=== PATIENT | female | born 1990 | race Caucasian/White ===

== ENCOUNTER 2020-08-09 13:12 | Emergency (ER) | payer OTHER, SELFPAY ==
--- NOTE | 2020-08-09 13:35 | ED.FEMALEGU ---
HPI - Female Genitourinary General Chief complaint: Urogenital-Female Stated complaint: STD Time Seen by Provider: 08/09/20 13:30 Source: patient and RN notes reviewed Mode of arrival: ambulatory Limitations: no limitations History of Present Illness HPI Narrative: 30-year-old female presents concern for vaginal discharge, vaginal burning, swelling, itching, irritation. Reports thick white vaginal discharge. Reports she has had a tubal ligation and there is no chance she could be . Reports symptoms have been present for 2 days. Reports she has been to make sure that could have been exposed to an STD. Denies nausea, vomiting, back pain, abdominal pain, fever, malaise, body aches. Denies dysuria, frequency, urgency. Patient reports she has chronic kidney disease, has hematuria and proteinuria at baseline. MD elicited complaint: vaginal discharge Related Data Allergies Allergy/AdvReac Type Severity Reaction Status Date / Time enalapril Allergy Mild Unverified 09/13/14 17:14 Review of Systems Review of Systems: Narrative: CONSTITUTIONAL: Denies malaise, chills, sweats, or fever. CARDIOVASCULAR: Denies chest pain, palpitations, or edema. RESPIRATORY: Denies cough or dyspnea. GASTROINTESTINAL: Denies abdominal pain, nausea, vomiting, diarrhea GENITOURINARY: Denies dysuria, frequency, urgency. Reports abnormal vaginal discharge, vaginal swelling, irritation, redness, itching. MUSCULOSKELETAL: Denies back pain, myalgia. All systems reviewed & are unremarkable except as noted in HPI and below PMFSH Comments At time of signature, agree with nursing past medical, surgical, social and family history. There is no relevant family history pertinent to the presenting complaint Exam Narrative: Exam Narrative: GENERAL: Well-appearing, well-nourished, and in no acute distress. HEAD: Normocephalic. EYES: PERRLA, conjunctivae clear. NECK: Supple. No lymphadenopathy CHEST: Clear to auscultation. No respiratory distress. HEART: Regular rate and rhythm. ABDOMEN: Soft, nontender upon palpation, nondistended, normal active bowel sounds, no palpable or pulsatile masses, no guarding. No CVA tenderness SKIN: Warm, dry, no rash. NEURO: Alert and oriented x3. PSYCH: Normal mood and affect : Speculum Exam - Vagina: abnormal vaginal discharge (Thick) white, erythematous and swelling Course Course Emergency Course: Patient is aware of diagnosis, understands and agrees to treatment plan. Anticipatory guidance given. Patient agrees to follow-up as directed and is aware of reasons to seek care at the emergency department. Portions of this record may have been created with voice recognition software Vital Signs Vital signs: Vital Signs Temperature 97.9 F 08/09/20 13:36 Pulse Rate 68 08/09/20 13:36 Respiratory Rate 18 08/09/20 13:36 Blood Pressure 125/88 08/09/20 13:36 Pulse Oximetry 100 08/09/20 13:36 Temperature 97.9 F 08/09/20 13:36 Pulse Rate 68 08/09/20 13:36 Respiratory Rate 18 08/09/20 13:36 Blood Pressure 125/88 08/09/20 13:36 Pulse Oximetry 100 08/09/20 13:36 Reviewed. MDM - Female Genitourinary MDM Narrative Medical decision making narrative: Exam findings and UA show no acute concerns or changes; patient is non-toxic appearing and is in no distress. No CMT, adnexal tenderness, or evidence of pelvic etiology. Patient is appropriate for outpatient treatment and follow-up. Lab Data Labs: Urine Glucose Negative Reference Range: Negative Urine Bilirubin Negative Reference Range: Negative Urine Ketone Negative Reference Range: Negative Urine Specific [place] 1.030 Reference Range:1.001-1.035 Urine Blood
[2020-08-09 13:36] VITALS: BP 125/88; PULSE 68; RESP 18; TEMP 36.6; O2SAT 100
[2020-08-09] MEDS: AZITHROMYCIN 250 MG TABLET 1000 MG PO (14:00)
[2020-08-09] MEDS: cefTRIAXone 250 MG VIAL IM (14:01)
[2020-08-09] MEDS: LIDOCAINE HCL 1% LOCAL INJ 20 ML VIAL INFILTRATE (14:01)
== END 2020-08-09 14:25 | disposition home or self-care (01) ==
PROVIDERS: Emergency Provider Nurse Practitioner
DX: N89.8 Other specified noninflammatory disorders of vagina (principal); Z20.2 Contact with and (suspected) exposure to infections with a predominantly sexual mode of transmission; I10 Essential (primary) hypertension
CPT/HCPCS: 81003; 87491; 87591; 87661; 96372; 99214; A9270; G0463; J0696

== ENCOUNTER 2020-10-12 11:32 | Day surgery (SDC) | payer OTHER, SELFPAY ==
[2020-10-12] VITALS (14 sets, daily range): BP systolic 81–102; BP diastolic 57–73; PULSE 68–109; RESP 13–18; TEMP 36.1–37.1; O2SAT 98–100
[2020-10-12 12:32] LABS: Basophils Percent Auto 0.4 % (0.2-1.2); Eosinophils Percent Auto 0.4 % (0-4.4); Hemoglobin 12.5 g/dL (12.0-15.0); Immature Granulocyte Absolute 0.07 K/mm3 (0.00-0.031); Immature Granulocyte Percent A 0.7 % (0-0.5); Lymphocytes Absolute Auto 1.02 K/mm3 (0.9-3.2); Lymphocytes Percent Auto 10.3 % (18.3-44.2); Mean Corpuscular HGB Conc 31.3 g/dl (32-36); Mean Corpuscular Volume 89.5 fl (80-100); Mean Platelet Volume 10.5 fl (7.4-10.4); Monocytes Absolute Auto 0.4 K/mm3 (0.1-0.6); Monocytes Percent Auto 4.3 % (2.6-8.5); Neutrophils Absolute Auto 8.3 K/mm3 (1.3-6.7); Neutrophils Percent Auto 83.9 % (45.5-73.1); Platelet Count Result 321 k/mm3 (150-375); Red Blood Count 4.47 M/mm3 (4.2-5.4); Red Cell Distribution Width 12.5 % (11.5-14.5); White Blood Count 9.9 K/mm3 (4.5-10.0)
[2020-10-12 12:45] LABS: Anion Gap 3 mmol/L (8-16); Blood Urea Nitrogen 13 mg/dL (7-17); Calcium 8.6 mg/dL (8.4-10.2); Carbon Dioxide 26 mmol/L (22-30); Chloride 108 mmol/L (98-107); Estimated CRCL calculation 86 ml/min; Estimated Glomerular Filt Rate > 60; Glucose 108 mg/dL (65-105); Sodium 137 mmol/L (137-145)
--- NOTE | 2020-10-12 12:56 | ED.FEMALEGU ---
HPI - Female Genitourinary General Chief complaint: Vaginal Bleeding Stated complaint: laceration Time Seen by Provider: 10/12/20 12:13 Source: patient and RN notes reviewed Limitations: no limitations History of Present Illness HPI Narrative: Patient is 30 years old white female presents with sudden onset of vaginal bleeding during having vaginal intercourse. Patient reported this was the first time to sleep with WI, denies any using of toys or anything unusual. No condom. Last menstrual period 2 to 3 weeks ago patient is 11 para 5 6 Related Data Home Medications Medication Instructions Recorded Confirmed No Home Medications 10/12/20 10/12/20 Allergies Allergy/AdvReac Type Severity Reaction Status Date / Time enalapril AdvReac Mild Joint Pain Verified 10/12/20 11:55 Review of Systems Review of Systems: Narrative: CONSTITUTIONAL: Denies fever, chills, or sweats. EYES: Denies visual changes, redness, or discharge. ENT: Denies rhinorrhea, congestion, sore throat, or otalgia. CARDIOVASCULAR: Denies chest pain, palpitations, or edema. RESPIRATORY: Denies cough or dyspnea. GASTROINTESTINAL: Denies abdominal pain, nausea, vomiting, or diarrhea. GENITOURINARY: Denies dysuria or hematuria. SKIN: Denies rash or itching. MUSCULOSKELETAL: Denies back pain, joint pain, or myalgia. NEUROLOGIC: Denies headache, numbness, or weakness. PSYCHIATRIC: Denies anxiety or depression. [facility] Social History Social History Gender identity (if verbalized by the patient): Female Exam Narrative: Exam Narrative: General appearance: Well-developed, well-nourished Skin: Normal color Head: Normocephalic, nontraumatic Eyes: Clear conjunctiva ENT: Oropharynx normal, ears normal, nose normal Neck: Supple, nontender Chest and respiratory: Airway patent, no respiratory distress, no accessory muscle use Heart: Regular rate/rhythm Abdomen: Soft, nontender, no organomegaly, quiet bowel sounds Vascular: Normal peripheral pulses, normal capillary refill. Musculoskeletal: Normal range of motion, nontender back Neurologic: Alert and oriented ?3, [employer] is normal as tested, no gross motor deficit : Speculum Exam - Vagina: laceration (About 5 cm laceration left side of the vagina proximal to the cervix) and vaginal bleeding (Heavy bleeding of fresh red bright blood, with a lot of large size clots) Speculum Exam - Cervix: normal appearance of the cervix and Cervical os closed Course Course Emergency Course: Stable Consultations Consultation #1: Dr. Ochoa Date: 10/12/20 Time: 13:21 Vital Signs Vital signs: Vital Signs Temperature 36.1 C L 10/12/20 11:52 Pulse Rate 109 H 10/12/20 11:52 Respiratory Rate 18 10/12/20 11:52 Blood Pressure 89/68 L 10/12/20 11:52 Pulse Oximetry 99 10/12/20 11:52 Temperature 36.1 C L 10/12/20 11:52 Pulse Rate 100 10/12/20 12:46 Respiratory Rate 18 10/12/20 11:52 Blood Pressure 81/68 L 10/12/20 12:46 Pulse Oximetry 99 10/12/20 11:52 MDM - Female Genitourinary MDM Narrative Medical decision making narrative: Vaginal bleeding during intercourse. Vaginal laceration, is my concern. Labs, pelvic exam ordered IV fluid ordered. Further plan to follow Differential Diagnosis Differential diagnosis: Likely other (Vaginal wall laceration) Lab Data Result diagrams: 10/12/20 12:24 10/12/20 12:24 Labs: Lab Results 10/12/20 10/12/20 10/12/20 Range/Units 12:24 12:24 13:21 WBC 9.9 (4.5-10.0) K/mm3 RBC 4.47 (4.2-5.4) M/mm3 Hgb 12.5 (12.0-15.0) g/dL Hct 40.0 (37.0-47.0) % MCV 89.5 (80-100)
[2020-10-12] MEDS: SODIUM CHLORIDE 0.9% IV 1,000 ML 999 ML IV CONT ×2 (13:14)
--- NOTE | 2020-10-12 13:15 | PC.NURSE ---
Addendum entered by Brennan Burns RN 10/12/20 13:59: Also note pt has multiple aurelia size clots to vaginal vault during exam. Original Note: Pelvic exam per Dr. Nunes with this RN in attendance. Note pt has numerous clots in vaginal vault, and actively bleeding from what appears to be a laceration to left vaginal wall. Suction approx 200cc bright red blood and vagina packed with 4x4's per Dr. Nunes.
--- NOTE | 2020-10-12 14:03 | PC.NURSE ---
Red top being drawn. Report to OR. Preparing to transport to pre-op.
--- NOTE | 2020-10-12 14:23 | WPDANESEPPF ---
Anes - Initial Pre Proc Eval Procedure: Operation Date: 10/12/20 15:30 Proposed Procedures p Repair Vaginal Laceration - Aleah Ochoa MD Date/Time: 10/12/20 14:23 Surgeon: Aleah Ochoa MD Pre Op Diagnosis: vaginal laceration Patient Data Age: 30 Gender: F Height: 5 ft 4 in Weight: 62.1 kg Last Vital Signs Temp 36.1 C L 10/12/20 11:52 Pulse 84 10/12/20 13:45 Resp 16 10/12/20 13:45 BP 90/64 L 10/12/20 13:45 Pulse Ox 100 10/12/20 13:45 Allergies Allergy/AdvReac Type Severity Reaction Status Date / Time enalapril AdvReac Mild Joint Pain Verified 10/12/20 11:55 Home Medications Medication Instructions Recorded Confirmed Type No Home Medications 10/12/20 10/12/20 History Laboratory Tests 10/12/20 10/12/20 10/12/20 12:24 12:24 13:12 WBC 9.9 K/mm3 K/mm3 (4.5-10.0) RBC 4.47 M/mm3 M/mm3 (4.2-5.4) Hgb 12.5 g/dL g/dL (12.0-15.0) Hct 40.0 % % (37.0-47.0) MCV 89.5 fl fl (80-100) MCH 28.0 pg pg (26-34) MCHC 31.3 g/dl L g/dl (32-36) RDW 12.5 % % (11.5-14.5) Plt Count 321 k/mm3 k/mm3 (150-375) MPV 10.5 fl H fl (7.4-10.4) Immature Gran % (Auto) 0.7 % H % (0-0.5) Neut % (Auto) 83.9 % H % (45.5-73.1) Lymph % (Auto) 10.3 % L % (18.3-44.2) Crisp % (Auto) 4.3 % % (2.6-8.5) Eos % (Auto) 0.4 % % (0-4.4) Baso % (Auto) 0.4 % % (0.2-1.2) Lymph # (Auto) 1.02 K/mm3 K/mm3 (0.9-3.2) Crisp # (Auto) 0.4 K/mm3 K/mm3 (0.1-0.6) Eos # (Auto) 0.0 K/mm3 K/mm3 (0-0.3) Baso # (Auto) 0.0 K/mm3 K/mm3 (0.0-0.1) Abs Immat Gran (auto) 0.07 K/mm3 H K/mm3 (0.00-0.031) Absolute Neuts (auto) 8.3 K/mm3 H K/mm3 (1.3-6.7) Absolute Nucleated RBC 0.0 K/mm3 K/mm3 (0.0-0.012) Nucleated RBC % 0.0 % % (0.0-0.2) Sodium 137 mmol/L mmol/L (137-145) Potassium 4.0 mmol/L mmol/L (3.4-5.0) Chloride 108 mmol/L H mmol/L (98-107) Carbon Dioxide 26 mmol/L mmol/L (22-30) Anion Gap 3 mmol/L L mmol/L (8-16) BUN 13 mg/dL mg/dL (7-17) Creatinine 0.70 mg/dL mg/dL (0.7-1.0) Estim Creat Clear Calc 86 ml/min ml/min Estimated GFR > 60 (59 - ) Glucose 108 mg/dL H mg/dL (65-105) Calcium 8.6 mg/dL mg/dL (8.4-10.2) Serum HCG, Qual Blood Type Pending Antibody Screen Pending 10/12/20 13:21 WBC RBC Hgb Hct MCV MCH MCHC RDW Plt Count MPV Immature Gran % (Auto) Neut % (Auto) Lymph % (Auto) Crisp % (Auto) Eos % (Auto) Baso % (Auto) Lymph # (Auto) Crisp # (Auto) Eos # (Auto) Baso # (Auto) Abs Immat Gran (auto) Absolute Neuts (auto) Absolute Nucleated RBC Nucleated RBC % Sodium Potassium Chloride Carbon Dioxide Anion Gap BUN Creatinine Estim Creat Clear Calc Estimated GFR Glucose Calcium Serum HCG, Qual Pending Blood Type Antibody Screen Patient hx anesthesia problems: none Family hx anesthesia problems: none [facility] Past Medical History Medical History Hypertension Social History Social History Gender identity (if verbalized by the patient): Female Anes - Eval Final PreProcedure Day of Procedure 10/12/20 14:23 Patient weight: normal Heart: regular rate and rhythm Lungs: clear to auscultation Airway: Mallampati scale class II Neurological: alert and oriented Last oral intake: >/= 8 hours ASA classification: II Emergent: n
--- NOTE | 2020-10-12 14:36 | PM.HPGS ---
History of Present Illness History of Present Illness Consent: Risks, benefits, and alternatives have been discussed and questions answered. Patient agrees to proceed with procedure. Chief complaint: vaginal laceration Narrative: Sary Ta is a 30 year old female who began bleeding bright red blood post sex with new partner. Denies use of toys or any foreign objects. No pain. No other complaints. Found to have a vaginal laceration in ER. Patient packed in ER after blood suctioned from vaginal by ER MD. Discussed with patient need to suture laceration and need for pelvic rest post op. Review of Systems Constitutional: Constitutional: Reports no additional constitutional complaints Gastrointestinal: Gastrointestinal: Reports no additional gastrointestinal complaints Genitourinary: Genitourinary: Reports no additional female genitourinary complaints and Reports as per [facility] Past Medical History Medical History (Updated 10/12/20 @ 14:39 by Aleah Ochoa MD) History of spontaneous x 6 Hypertension (normal spontaneous vaginal delivery) x 5 Surgical History Surgical History (Updated 10/12/20 @ 14:39 by Aleah Ochoa MD) S/P tubal ligation Social History Social History Gender identity (if verbalized by the patient): Female Meds Home Medications and Allergies Home Medications Medication Instructions Recorded Confirmed Type No Home Medications 10/12/20 10/12/20 History Allergies Allergy/AdvReac Type Severity Reaction Status Date / Time enalapril AdvReac Mild Joint Pain Verified 10/12/20 11:55 Vital Signs Vital Signs - 24 hr 10/12/20 11:52 10/12/20 12:45 10/12/20 12:46 Temperature 96.9 F L Pulse Rate 109 H 91 100 Respiratory Rate 18 Blood Pressure 89/68 L 86/73 L 81/68 L Pulse Oximetry 99 10/12/20 13:15 10/12/20 13:20 10/12/20 13:30 Temperature Pulse Rate 68 82 73 Respiratory Rate 17 13 14 Blood Pressure 93/66 L 90/61 L Pulse Oximetry 100 10/12/20 13:45 Temperature Pulse Rate 84 Respiratory Rate 16 Blood Pressure 90/64 L Pulse Oximetry 100 Exam Narrative: Exam Narrative: exam deferred to OR. see ER MD exam Const: General: healthy appearing and comfortable Assessment and Plan Assessment and plan (1) Vaginal bleeding: Code(s): N93.9 - Abnormal uterine and vaginal bleeding, unspecified Status: Acute (2) Vaginal laceration: Qualifiers: Encounter type: subsequent encounter Foreign body presence: without foreign body Perineal laceration presence: without perineal laceration Vaginal laceration type: non-obstetric Qualified Code(s): S31.41XD - Laceration without foreign body of vagina and vulva, subsequent encounter Code(s): S31.41XA - Laceration without foreign body of vagina and vulva, initial encounter Status: Acute Assessment and Plan: plan to proceed with vaginal laceration repair under anesthesia
--- NOTE | 2020-10-12 14:42 | WPDHPUPDATE1 ---
History and Physical Update Update Date/Time: 10/12/20 14:42 History and Physical has been reviewed, including an updated exam of the patient. There are NO changes in the patient's condition. Risks, benefits, and alternatives have been discussed and questions answered. Patient agrees to proceed with procedure.
[2020-10-12] MEDS: LACTATED RINGERS 1,000 ML 30 ML IV CONT ×2 (14:51→15:26)
--- NOTE | 2020-10-12 14:55 | SUR.PREOP ---
1430; UNABLE TO DRAW SERUM PREG. PT HAVING HEAVY VAG BLEEDING. DO NOT WANT TO GET HER UP TO BATHROOM. DR MARTE NOTIFIED. HE WAIVED PREG TEST.
[2020-10-12] MEDS: LIDO 1%/EPINEPHRINE 1:100,000 50 ML VIAL 10 ML INFILTRATE (15:11)
--- NOTE | 2020-10-12 15:21 | PM.PROC ---
Procedure Note - Detailed Date of procedure: 10/12/20 Pre-op diagnosis: vaginal laceration Post-op diagnosis: same Procedure performed: repair of vaginal laceration Description of procedure: The patient was taken to the operating room and placed in the dorsal lithotomy position under anesthesia. She was prepped and draped in the usual sterile fashion externally. The bivalve speculum was placed in the vagina and 60cc of clotted blood and active bleeding were suction from the vagina. The 4x4 gauze placed in the vagina per the ER doctor were removed and were soaked and dripping. The vagina was inspected and the laceration is as noted below. The apex of the laceration is grasped with an Allis clamp. The laceration is closed in a running lock suture of 3 O Vicryl. There was an additional extension approximately 3cm from distal end of the laceration approximately 1cm in length running perpendicular to the primary laceration this had 2 [id number] sutures placed in addition to 1 additional [id number] suture placed for hemostasis. The laceration site is injected with 1% lidocaine with epinephrine. All instruments are then removed and the patient is taken to recovery in stable condition. Sponge, needle, and instrument counts are correct per the OR staff. Anesthesia: MAC and local Surgeon: Aleah Ochoa MD Estimated blood loss (mL): 40 (160 in vagina at start of procedure) Packing: No Pathology: none sent Complications: No immediate complications Condition: stable Disposition: PACU Findings: 160 cc blood clots and soaked vaginal packing in the vagina; approx 7 cm long by 1 cm deep vaginal laceration on left posterior sidewall
== END 2020-10-12 17:54 | disposition home or self-care (01) ==
LOC: ANHED 13:25 → ANHSURGERY 13:28
PROVIDERS: Emergency Provider Emergency Medicine; Visit Provider Obstetrics & Gynecology Gynecology
PROC: (CPT 57200; principal; 2020-10-12 15:30)
DX: S31.41XA Laceration without foreign body of vagina and vulva, initial encounter (principal); X58.XXXA Exposure to other specified factors, initial encounter
CPT/HCPCS: 57200; 36415; 80048; 85025; 86850; 86900; 86901; 96360; 99285; A9270; J2250; J2370; J2704; J3010; J7030; J7120

== ENCOUNTER 2023-07-31 14:05 | Emergency (ER) | payer BC, SELFPAY ==
[2023-07-31 14:15] VITALS: BP 132/81; PULSE 93; RESP 16; TEMP 37.1; O2SAT 97
--- NOTE | 2023-07-31 15:08 | ED.URI ---
HPI - URI/Sore Throat General Chief Complaint: Upper Respiratory Infection Stated Complaint: cough/chest burn/fever/headache Time Seen by Provider: 07/31/23 14:45 Source: patient, RN notes reviewed and old records reviewed Mode of arrival: ambulatory Limitations: no limitations History of Present Illness HPI Narrative: 33 year old female female who presents to [facility] care with complaints of 2 1/2 week duration of cough with 4 days of productive cough of yellowish tinged mucous with fevers and some shortness of breath with exertion and headache.. Patient has been taking Tylenol, Mucinex, cough medication and albuterol inhaler which she received 2 weeks ago from urgent care in [place]. Patient reports some fatigue and also headache but denies any body aches, is afebrile at present time MD elicited complaint: fever, cough, rhinorrhea, nasal congestion and other Onset (ago): week(s) (2.5) Consistency: constant Severity: moderate Able to tolerate fluids by mouth: Yes Exacerbating factors: exertion Treatments prior to arrival: acetaminophen and other (Mucinex, inhaler, cough medication) Related Data Allergies Allergy/AdvReac Type Severity Reaction Status Date / Time enalapril AdvReac Mild Joint Pain Verified 07/31/23 14:46 Review of Systems Review of Systems: CONSTITUTIONAL: Reports malaise, chills, sweats, or fever. EYES: Denies visual changes, redness, or discharge. ENT: Reports rhinorrhea, congestion, sinus pain, no otalgia and no sore throat. CARDIOVASCULAR: Denies chest pain, palpitations, or edema. RESPIRATORY: Reports cough.? states some dyspnea with exertion,.positive for mucous production GASTROINTESTINAL: Denies abdominal pain, nausea, vomiting, diarrhea SKIN: Denies rash or itching. MUSCULOSKELETAL: Denies myalgia. NEUROLOGIC:Reports headache. All systems reviewed & are unremarkable except as noted in HPI and below PMFSH Past Medical History Medical History (Updated 08/01/23 @ 12:36 by Shital Albert NP) History of spontaneous x 6 Hypertension Kidney disorder IGA renal disease (normal spontaneous vaginal delivery) x 5 Surgical History Surgical History (Updated 10/12/20 @ 14:39 by Aleah Ochoa MD) S/P tubal ligation Social History Social History Gender identity (if verbalized by the patient): Female Comments At time of signature, agree with nursing past medical, surgical, social and family history. There is no relevant family history pertinent to the presenting complaint Exam Narrative: GENERAL: Well-appearing, well-nourished, and in no acute distress. HEAD: Normocephalic EYES: PERRLA, conjunctivae clear ENT: Nares clear, turbinates edematous and erythematous, clear discharge. Mucous membranes moist. TM pearly wei with dull light reflex bilaterally; no tragal tenderness. Oropharynx erythematous without lesions. Tonsils not enlarged and without exudate, no drooling, no hoarseness, no trismus, uvula midline.post nasal drainage NECK: Supple. left lymphadenopathy CHEST: Clear to auscultation, breath sounds equal. No wheezing, rhonchi, rales, or stridor. No respiratory distress, speaks in full sentences.productive cough, SAO2 97% on room air HEART: Regular rate and rhythm. No murmur heard. SKIN: Warm, dry, no rash. NEURO: Alert and oriented x3. PSYCH: Normal mood and affect Course Course Emergency Course: Patient is aware of diagnosis, understands and agrees to treatment plan.? Anticipatory guidance given.? Patient agrees to follow-up as directed and is aware of reasons to seek care at the emergency department. Portions of this record may have been created with voice recognition software Level of Care: Express Care Visit Vital Signs Vital signs: Vital Signs Temperature 37.1 C 07/31/23 14:15 Pulse Rate 93 07/31/23 14:15 Respiratory Rate 16 07/31/23 14:15 Blo
== END 2023-07-31 15:46 | disposition home or self-care (01) ==
PROVIDERS: Emergency Provider Registered Nurse; PCP Family Medicine
DX: J06.9 Acute upper respiratory infection, unspecified (principal); R05.9 Cough, unspecified; Z20.822 Contact with and (suspected) exposure to COVID-19; I10 Essential (primary) hypertension
CPT/HCPCS: 36416; 86308; 87426; 87804; 99213; G0463